=== PATIENT | female | born 1970 | race Caucasian/White ===

== ENCOUNTER 2018-04-01 07:20 | Day surgery (SDC) | payer OTHER ==
[~2018-04-01 07:20] MED LIST: BENADRYL25 MG PO; COLAGENO PO; DULCOLAX5 MG PO; GABAPENTIN300 MG PO; PROTONIX20 MG PO; ZANTAC150 MG PO; ZYRTEC10 MG PO
== END 2018-04-01 13:55 | disposition home or self-care (01) ==
LOC: CIR.AMB 07:20
DX: M24.831 Other specific joint derangements of right wrist, not elsewhere classified (principal)